=== PATIENT | female | born 1990 | race American Indian/Alaskan Native ===

== ENCOUNTER 2017-02-13 12:23 | Emergency (ER) | payer OTHER ==
[2017-02-13 13:03] VITALS: BP 137/90
[2017-02-13] MEDS ORDERED: MOTRIN PO ONE (16:41)
[2017-02-13] MEDS ORDERED: BOOSTRIX IM ONE (16:41)
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
[2017-02-13] MEDS ORDERED: TRIPLE ANTIBIOTIC TP ONE (17:12)
== END 2017-02-13 17:34 | disposition home or self-care (01) ==
LOC: ED 12:23
DX: S11.95XA Open bite of unspecified part of neck, initial encounter (principal); J45.909 Unspecified asthma, uncomplicated; Y08.89XA Assault by other specified means, initial encounter; Y93.9 Activity, unspecified; Y99.9 Unspecified external cause status; Y92.009 Unspecified place in unspecified non-institutional (private) residence as the place of occurrence of the external cause
CPT/HCPCS: 90471; 90715; 99282